=== PATIENT | female | born 1990 | race Two or more races ===

== ENCOUNTER 2017-11-20 22:11 | Emergency (ER) | payer BC, OTHER ==
[~2017-11-20] VITALS: Ht 170.2 cm; Wt 61.2 kg
[2017-11-20 22:14] VITALS: BP 136/86
--- NOTE | 2017-11-20 23:10 | NUR ---
PATIENT CALLED AND [facility] AN[facility]ER [facility] STATES PT STATES SHE WAS LEAVING
== END 2017-11-21 00:19 | disposition left against medical advice (07) ==
LOC: ER 22:13
DX: Z53.21 Procedure and treatment not carried out due to patient leaving prior to being seen by health care provider (principal); F41.9 Anxiety disorder, unspecified
CPT/HCPCS: A4606; Z7610